=== PATIENT | male | born 1995 | race Caucasian/White ===

== ENCOUNTER 2019-07-03 00:10 | Emergency (ER) | payer OTHER ==
[~2019-07-03] VITALS: Ht 175.3 cm; Wt 79.5 kg
[2019-07-03] MEDS ORDERED: NS 1,000 ML IV ONE (02:30)
[2019-07-03 03:30] VITALS: BP 114/71
[2019-07-03] MEDS ORDERED: KETOROLAC 30 MG/ML VIAL (J1885) IV ONE (03:30)
== END 2019-07-03 03:56 | disposition home or self-care (01) ==
LOC: M ED 00:10
DX: E86.0 Dehydration (principal); M54.2 Cervicalgia
CPT/HCPCS: 96361; 96374; 99284; J1885

== ENCOUNTER 2021-04-14 10:15 | Emergency (ER) | payer OTHER ==
[~2021-04-14] VITALS: Ht 177.8 cm; Wt 90.9 kg
[2021-04-14 10:16] VITALS: BP 143/88
== END 2021-04-14 16:41 | disposition home or self-care (01) ==
LOC: M ED 10:15
DX: S33.5XXA Sprain of ligaments of lumbar spine, initial encounter (principal); F17.200 Nicotine dependence, unspecified, uncomplicated; V49.40XA Driver injured in collision with unspecified motor vehicles in traffic accident, initial encounter; Y92.9 Unspecified place or not applicable; Y93.9 Activity, unspecified; Y99.1 Military activity

== ENCOUNTER → 2021-06-09 | Outpatient (REF) | LOC: M PLAIMG 10:35 | PROVIDERS: ATTEND Internal Medicine | DX: R06.02 Shortness of breath (principal); M54.6 Pain in thoracic spine ==